=== PATIENT | male | born 1975 | race African-American/Black ===

== ENCOUNTER 2016-10-17 08:29 | Emergency (ER) | payer OTHER ==
[2016-10-17 08:34] VITALS: BMI 36.3
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
[2016-10-17] MEDS ORDERED: ONDANSETRON *ODT* 4 MG TABLET SL ONE (08:53)
[2016-10-17] MEDS ORDERED: OXYCODONE/APAP 5/325MG COMBO TABLET PO ONE (08:53)
[2016-10-17] MEDS ORDERED: OXYCODONE/APAP 5/325MG COMBO TABLET ONE (09:34)
[2016-10-17 09:49] LABS: BASOPHIL 1.3 % (0-2.0); MCHC 33.1 g/dl (32.0-35.9); MEAN CELL VOLUME 87.7 fl (80-96); MEAN PLT VOLUME 8.2 fl (7.5-11.1); NEUTROPHILS 48.9 % (42.8-82.8); PLATELET COUNT 245 K/MM3 (134-434); RDW 12.9 % (11.9-15.9); WHITE BLOOD COUNT 3.4 K/mm3 (4.0-10.0)
[2016-10-17] MEDS ORDERED: ONDANSETRON *ODT* 4 MG TABLET ONE (10:04)
[2016-10-17 10:10] LABS: INR 1.04 (0.82-1.09); PROTHROMBIN TIME (PATIENT) 11.5 SEC (9.98-11.88)
[2016-10-17 10:14] LABS: ALBUMIN 3.9 g/dl (3.4-5.0); ANION GAP 6 (8-16); BILIRUBIN,TOTAL 0.4 mg/dL (0.2-1.0); CALCIUM 8.7 mg/dL (8.5-10.1); CO2 29 mmol/L (21-32); COCKROFT - GAULT 130.14; CREATININE 1.1 mg/dL (0.7-1.3); GLUCOSE,RANDOM 91 mg/dL (74-106); SGOT/AST 17 U/L (15-37); SGPT/ALT 24 U/L (12-78); TOT PROT 7.1 g/dl (6.4-8.2)
[2016-10-17 10:16] LABS: ALK PHOS 67 U/L (45-117); TROPONIN I < 0.02 ng/ml (0.00-0.05)
--- NOTE | 2016-10-17 10:42 | EKG ---
Test Reason : Blood Pressure : / mmHG Vent. Rate : 068 BPM Atrial Rate : 068 BPM P-R Int : 158 ms QRS Dur : 086 ms QT Int : 390 ms P-R-T Axes : 044 003 010 degrees QTc Int : 414 ms NORMAL SINUS RHYTHM NORMAL ECG NO PREVIOUS ECGS AVAILABLE Confirmed by MD CHELO, CASSANDRA ([id number]) on 10/17/2016 10:42:06 AM Referred By: Confirmed By:CASSANDRA WHITNEY MD
[2016-10-17 12:03] VITALS: BP 135/76; PULSE 60; TEMP 98.5
== END 2016-10-17 12:03 | disposition home or self-care (01) ==
LOC: JER 08:29
DX: R07.89 Other chest pain (principal)
CPT/HCPCS: 36415; 71020-TC; 80053; 82550; 84484; 85025; 85610; 93005; 93010; 99281-25

== ENCOUNTER 2018-08-13 14:10 | Emergency (ER) | payer OTHER ==
[2018-08-13 14:19] VITALS: BP 159/103; PULSE 86; TEMP 98.9; BMI 33.9
[2018-08-13] MEDS ORDERED: IBUPROFEN 600 MG TABLET (FP) PO ONE ×2 (15:00→15:08)
[2018-08-13] MEDS ORDERED: SULFAMETHOXAZOLE/TRIMETHOPRIM 800MG/160MG D.S. TABLET PO ONE (15:00)
--- NOTE | 2018-08-13 15:05 | PDOC ---
History of Present Illness - General Chief Complaint: Abscess Boil Stated Complaint: BOIL UNDER ARM Time Seen by Provider: 08/13/18 14:29 History Source: Patient Exam Limitations: No Limitations - History of Present Illness Initial Comments: 08/13/18 16:38 Patient came for evaluation and treatment for large and very painful abscess under his right armpit. States has suffered in the past from multiple other skin abscesses, is unknown as to cause of these and has never been checked for MRSA. States his had fevers and chills, and has taken only Tylenol for pain relief. Suffers from abscesses as does small children at home. Timing/Duration: unsure Severity: moderate Past History - Travel Traveled outside of the country in the last 30 days: No Close contact w/someone who was outside of country & ill: No - Past Medical History Allergies/Adverse Reactions: Allergies Allergy/AdvReac Type Severity Reaction Status Date / Time No Known Allergies Allergy Verified 08/13/18 14:19 Home Medications: Ambulatory Orders Chlorhexidine Gluconate [Hibiclens For Decolonization -] 1 applic TP DAILY #1 bottle 08/13/18 Oxycodone HCl/Acetaminophen [Percocet 5-325 mg Tablet -] 1 - 2 tab PO Q4H PRN # 7 tablet MDD 4 08/13/18 Sulfamethoxazole/Trimethoprim [Bactrim *Ds*] 1 each PO BID #14 tablet 08/13/18 Asthma: Yes COPD: No - Suicide/Smoking/Psychosocial Hx Smoking Status: No Smoking History: Never smoked Number of Cigarettes Smoked Daily: 0 Hx Alcohol Use: No Drug/Substance Use Hx: No Review of Systems - Review of Systems Able to Perform ROS?: Yes Is the patient limited Kinyarwanda proficient: Yes Constitutional: Yes: Symptoms Reported HEENTM: No: Symptoms Reported Respiratory: No: Symptoms reported Cardiac (ROS): No: Symptoms Reported Integumentary: Yes: Symptoms Reported, See HPI, Erythema, Lesions, Lumps Neurological: Yes: Symptoms reported All Other Systems: Reviewed and Negative *Physical Exam - Vital Signs Last Vital Signs Temp Pulse Resp BP Pulse Ox 98.9 F 86 18 159/103 H 100 08/13/18 14:15 08/13/18 14:15 08/13/18 14:15 08/13/18 14:15 08/13/18 14:15 - Physical Exam General Appearance: Yes: Nourished, Appropriately Dressed, Apparent Distress, Mild Distress, Moderate Distress HEENT: positive: SHAHZAD, Normal ENT Inspection, TMs Normal, Pharynx Normal Neck: positive: Supple. negative: Tender, Lymphadenopathy (R), Lymphadenopathy (L) Respiratory/Chest: positive: Lungs Clear, Normal Breath Sounds Gastrointestinal/Abdominal: positive: Soft. negative: Tender Lymphatic: positive: Adenopathy Musculoskeletal: positive: Normal Inspection. negative: Vertebral Tenderness Extremity: positive: Normal Capillary Refill, Normal Inspection, Other. 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 NML intact, Fully Oriented, Alert, Normal Mood/ Affect Moderate Sedation - Procedure Monitoring Vital Signs: Procedure Monitoring Vital Signs Temperature 98.9 F 08/13/18 14:15 Pulse Rate 86 08/13/18 14:15 Respiratory Rate 18 08/13/18 14:15 Blood Pressure 159/103 H 08/13/18 14:15 O2 Sat by Pulse Oximetry (%) 100 08/13/18 14:15 Procedures - Incision and Drainage I&D Site: Right: Axilla Anesthesia: 1% Lidocaine Blade Size: 11 Iodinated Packin/ in Complications: none Dressing: Yes Medical Decision Making - Medical Decision Making 08/13/18 16:39 Right axillary abscess incised and drained, patient tolerated moderately well. *DC/Admit/Observation/Transfer Diagnosis at time of Disposition: Abscess - Discharge Dispostion Disposition: HOME Condition at time of disposition: Stable Decision to Admit order: No - Prescriptions Prescriptions: Chlorhexidine Gluconate [Hibiclens For Decolonization -] 1 applic TP DAILY #1 bottle Oxycodone HCl/Acetaminophen [Percocet 5-325 mg Tablet -] 1 - 2 tab PO Q4H PRN # 7 tablet MDD 4 PRN Reason: Pain Sulfamethoxazole/Trimethoprim [Bactrim *Ds*] 1 each PO BID #14 tablet - Referrals Referrals: Quincy Bardales [Primary Care Provider] - - Patient Instructions Printed Discharge Instructions: DI for Incision and Drainage of a Skin Abscess Additional Instructions: Rest, keep area elevated. Avoid strenuous activity or exercise until wound is healed Use hot soaks to area to bring more blood to the surface and encourage drainage May change dressings as needed to keep clean - trying to avoid removal of packing for 2 days. If packing needs to be changed, return to emergency department or with your followup physician for wound care and evaluation and repacking as needed If packing needs to be removed, then in 2 days, while in the shower remove dressing and quickly pull the packing taken out. Allow water from shower to wash area thoroughly for 2-3 minutes, and pat dry upon exit of shower and replace dressing. Change his dressing daily until the wound is completely healed. May use Tylenol or Motrin for mild pain relief Use stronger medications as directed and prescribed Continue all medications as prescribed Followup with private physician in 2-3 days for wound check Return to emergency Department for worsening swelling, pain, redness, fevers as needed Mefoxin resistant Staphylococcus aureus is a normal skin bacteria and is mutated to be resistant to penicillin type drugs. The wounds may be draining and there for contagious to other family members. Vigorous handwashing and avoidance of skin contact of draining lesions it is important . All family members Will need to be protected and perform thorough cleaning of linens /towels/clothing. To decontaminate household: Soak in bath; in one half cup of bleach in 1 full tub of water 2 times a week x3 weeks With own scrub Nylon use chlorohexidine soap twice a week to decontaminate skin Clean tub /toilet with bleach wipes after each use Do not use same linens/avoid contact until lesions are healed Followup with private physician/integrity analyst Take all of Bactrim as directed May use ibuprofen or Tylenol for pain relief Followup with PMD in one week if no resolution Make appointment with integrity analyst for evaluation when possible - Post Discharge Activity Forms/Work/School Notes: Back to Work
[2018-08-13] MEDS ORDERED: SULFAMETHOXAZOLE/TRIMETHOPRIM 800MG/160MG D.S. TABLET ONE (15:09)
--- NOTE | 2018-08-15 09:34 | PDOC ---
Patient Follow-up (Call Back) - Post ED Follow - Up Condition at time of discharge: Stable Disposition at time of original discharge: HOME Reason for Call Back: Abnwl. Microbiology (MRSA (+) per micro. Pt on Bactrim and prescribed hibacleanse. No further action needed at this time.)
== END 2018-08-13 16:04 | disposition home or self-care (01) ==
LOC: JERFT 14:10
PROC: 0X940ZZ Drainage of Right Axilla, Open Approach (ICD-10-PCS; principal; 2018-08-13)
DX: L02.411 Cutaneous abscess of right axilla (principal)
CPT/HCPCS: 87070; 87186; 87205; 99282-25

== ENCOUNTER 2020-09-05 17:09 | Emergency (ER) | payer OTHER ==
[2020-09-05 17:21] VITALS: BP 151/92; TEMP 102.4; BMI 26.1
[2020-09-05] MEDS ORDERED: ACETAMINOPHEN 500 MG TABLET (FP) PO ONE (17:28)
[2020-09-05] MEDS ORDERED: KETOROLAC TROMETHAMINE 30 MG/1 ML VIAL IM ONE (17:28)
[2020-09-05] MEDS ORDERED: KETOROLAC TROMETHAMINE 30 MG/1 ML VIAL ONE (18:33)
[2020-09-05] MEDS ORDERED: ACETAMINOPHEN 325 MG TABLET (FP) ONE (18:33)
[2020-09-05 19:33] VITALS: PULSE 85
== END 2020-09-05 20:51 | disposition home or self-care (01) ==
LOC: JER 17:09
PROC: 3E0233Z Introduction of Anti-inflammatory into Muscle, Percutaneous Approach (ICD-10-PCS; principal; 2020-09-05)
DX: Z11.52 Encounter for screening for COVID-19 (principal)
CPT/HCPCS: 71046-TC-FY; 99284-25; C9803; U0003; U0005